=== PATIENT | female | born 1970 | race Caucasian/White ===

== ENCOUNTER 2018-06-24 15:07 | Emergency (ER) | payer OTHER ==
[~2018-06-24] VITALS: Ht 152.4 cm; Wt 73.5 kg
[2018-06-24 15:10] VITALS: BP_SYST 136
[2018-06-24] MEDS ORDERED: DEXAMETHASONE SOD PHOSPHATE 10 MG/ML VIAL IM ONE (15:30)
[2018-06-24 16:46] VITALS: BP_SYST 133
== END 2018-06-24 16:46 | disposition home or self-care (01) ==
LOC: SED 15:07
DX: G51.0 Bell's palsy (principal)
CPT/HCPCS: 96372; 99283; J1100